=== PATIENT | male | born 1995 | race Caucasian/White ===

== ENCOUNTER 2021-12-23 19:43 | Emergency (ER) | payer SELFPAY ==
[2021-12-23 19:49] VITALS: BP 160/71; PULSE 86; TEMP 98.7; BMI 37.5
[2021-12-23] MEDS ORDERED: diphenhydrAMINE HCL 25 MG CAPSULE (FP) PO ONE ×2 (20:28→20:34)
[2021-12-23] MEDS ORDERED: FAMOTIDINE 20 MG TABLET PO ONE (20:29)
[2021-12-23] MEDS ORDERED: DEXAMETHASONE SOD PHOSPHATE 10 MG/1 ML VIAL IM ONE (20:30)
[2021-12-23] MEDS ORDERED: FAMOTIDINE 20 MG TABLET ONE (20:34)
[2021-12-23] MEDS ORDERED: DEXAMETHASONE SOD PHOSPHATE 10 MG/1 ML VIAL ONE ×2 (20:34→20:35)
== END 2021-12-23 21:13 | disposition home or self-care (01) ==
LOC: JERFT 19:43
PROC: 3E023GC Introduction of Other Therapeutic Substance into Muscle, Percutaneous Approach (ICD-10-PCS; principal; 2021-12-23)
DX: L50.9 Urticaria, unspecified (principal)
CPT/HCPCS: 99284-25; J1100

== ENCOUNTER 2023-03-23 23:27 | Inpatient (IN) | payer OTHER ==
[2023-03-23 23:37] VITALS: BMI 31.3
[2023-03-23] MEDS ORDERED: KETOROLAC TROMETHAMINE 60 MG/2 ML VIAL IM ONE (23:50)
[2023-03-24] MEDS ORDERED: KETOROLAC TROMETHAMINE 60 MG/2 ML VIAL ONE (00:13)
[2023-03-24] MEDS ORDERED: diazePAM CARPU-JECT 10 MG/2 ML DISP.SYRIN IVPUSH ONE (01:05)
[2023-03-24] MEDS ORDERED: diazePAM CARPU-JECT 10 MG/2 ML DISP.SYRIN ONE (01:09)
[2023-03-24] MEDS ORDERED: diazePAM CARPU-JECT 10 MG/2 ML DISP.SYRIN IM ONE (01:13)
[2023-03-24] MEDS ORDERED: ONDANSETRON 4 MG/2 ML VIAL IVPUSH ONE (02:44)
[2023-03-24] MEDS ORDERED: ACETAMINOPHEN 1000 MG/100 ML BAG IVPB ONE (02:44)
[2023-03-24] MEDS ORDERED: morphine CARPU-JECT 4 MG/1 ML DISP.SYRIN IVPUSH ONE (02:44)
[2023-03-24] MEDS ORDERED: methylPREDNISolone NA SUCC 125 MG/2 ML VIAL IVPUSH ONE (02:44)
[2023-03-24] MEDS ORDERED: morphine SULFATE 4 MG/ML VIAL ONE (02:51)
[2023-03-24] MEDS ORDERED: ONDANSETRON 4 MG/2 ML VIAL ONE (02:51)
[2023-03-24] MEDS ORDERED: ACETAMINOPHEN INJECTION 100 ML IVPB ONE (02:51)
[2023-03-24] MEDS ORDERED: methylPREDNISolone NA SUCC 125 MG/2 ML VIAL ONE (02:52)
[2023-03-24 03:24] LABS: BASO % 0.4 % (0-2.0); EOS % 0.3 % (0-4.5); HEMATOCRIT 46.5 % (35.4-49); HEMOGLOBIN 15.9 GM/dL (11.7-16.9); LYMPH % 20.1 % (8-40); MCH 31.1 pg (25.7-33.7); MCHC 34.2 g/dl (32.0-35.9); MEAN PLT VOLUME 9.5 fl (7.5-11.1); MONO % 4.5 % (3.8-10.2); NEUT % 74.7 % (42.8-82.8); PLATELET COUNT 228 10^3/uL (134-434); RBC 5.11 M/mm3 (4.00-5.60); RDW 13.5 % (11.9-15.9); WHITE BLOOD COUNT 9.6 K/mm3 (4.0-10.0)
[2023-03-24 03:43] LABS: POTASSIUM 4.1 mmol/L (3.5-5.1)
[2023-03-24 03:45] LABS: CALCIUM 9.6 mg/dL (8.5-10.1)
[2023-03-24 03:46] LABS: ALBUMIN 4.2 g/dl (3.4-5.0); BLOOD UREA NITROGEN 15.5 mg/dL (7-18)
[2023-03-24 03:49] LABS: CREATININE 0.9 mg/dL (0.55-1.3)
[2023-03-24 03:51] LABS: BILIRUBIN,TOTAL 0.3 mg/dL (0.2-1); TOT PROT 7.7 g/dl (6.4-8.2)
[2023-03-24] MEDS ORDERED: KETOROLAC TROMETHAMINE 15 MG/ML VIAL IVPUSH PRN (04:29)
[2023-03-24] MEDS ORDERED: traMADol HCL 50 MG TABLET PO ONE (06:39)
[2023-03-24] MEDS ORDERED: DEXAMETHASONE 4 MG TABLET (FP) ONE (07:26)
[2023-03-24] MEDS ORDERED: traMADol HCL 50 MG TABLET ONE (07:26)
[2023-03-24] MEDS: DEXAMETHASONE 4 MG TABLET (FP) PO SCH ×3 (07:30→21:36)
[2023-03-24] MEDS ORDERED: ACETAMINOPHEN 325 MG TABLET (FP) PO PRN (09:30)
[2023-03-24] MEDS ORDERED: traMADol HCL 50 MG TABLET PO PRN (12:39)
[2023-03-24 16:01] LABS: URIC ACID 5.2 mg/dL (2.6-7.2)
[2023-03-25 05:15] VITALS: RESP 18
[2023-03-25] MEDS: DEXAMETHASONE 4 MG TABLET (FP) PO SCH (05:25)
[2023-03-25 10:01] LABS: POTASSIUM 4.6 mmol/L (3.5-5.1)
[2023-03-25 10:03] LABS: CALCIUM 9.7 mg/dL (8.5-10.1)
[2023-03-25 10:04] LABS: ALBUMIN 4.1 g/dl (3.4-5.0); BLOOD UREA NITROGEN 17.1 mg/dL (7-18)
[2023-03-25 10:07] LABS: CREATININE 0.7 mg/dL (0.55-1.3)
[2023-03-25 10:08] LABS: TOT PROT 7.7 g/dl (6.4-8.2)
[2023-03-25 10:09] LABS: BILIRUBIN,TOTAL 0.6 mg/dL (0.2-1)
[2023-03-25 10:15] LABS: HEMOGLOBIN 15.1 GM/dL (11.7-16.9); LYMPH % 8.2 % (8-40); MCH 30.2 pg (25.7-33.7); MCHC 32.1 g/dl (32.0-35.9); MEAN CELL VOLUME 93.9 fl (80-96); MEAN PLT VOLUME 10.3 fl (7.5-11.1); MONO % 3.5 % (3.8-10.2); NEUT % 88.3 % (42.8-82.8); PLATELET COUNT 218 10^3/uL (134-434); RBC 5.01 M/mm3 (4.00-5.60); RDW 13.3 % (11.9-15.9); WHITE BLOOD COUNT 11.9 K/mm3 (4.0-10.0)
[2023-03-25 16:56] VITALS: BP 123/71; PULSE 83; TEMP 98.7
== END 2023-03-25 19:00 | disposition home or self-care (01) | DRG 347 ==
LOC: JER 23:27 → INTOOBSV 03-24 02:50 → JERBED 03-24 02:50 → J5S 03-24 09:57 → OBSVTOIN 03-25 10:08
PROVIDERS: ADMIT Internal Medicine; ATTEND Internal Medicine
DX: M47.16 Other spondylosis with myelopathy, lumbar region (principal); M48.061 Spinal stenosis, lumbar region without neurogenic claudication
CPT/HCPCS: 36415; 72131-TC; 80053; 81374; 84550; 85025; 86431; 86618; 87491; 87591; 87661; 93005; 93010; 97116-GP; 97161-GP; 99285-25; G0378